=== PATIENT | female | born 1955 | race Caucasian/White ===

== ENCOUNTER 2016-09-29 10:29 | Outpatient (CLI) | payer MEDICAID | END 2016-09-29 10:30 | disposition home or self-care (01) | DX: E03.9 Hypothyroidism, unspecified (principal) ==

== ENCOUNTER 2016-12-04 07:00 | Outpatient (CLI) | payer MEDICAID | END 2016-12-04 07:01 | LOC: LAB.N 07:00 | PROVIDERS: ATTEND Nurse Practitioner Family | DX: H26.9 Unspecified cataract (principal) | CPT/HCPCS: 36415; 84443 ==

== ENCOUNTER 2016-12-11 09:08 | Outpatient (CLI) | payer MEDICAID ==
--- NOTE | 2016-12-12 09:53 | Mammography Report ---
DIGITAL BILATERAL SCREENING MAMMOGRAM: 12/11/2016 CLINICAL HISTORY: A 61-year-old female in for routine screening mammogram. Patient does have a fami ly history of breast cancer. Her great aunt had breast cancer in her 60s. Patient has had no prior breast surgeries. COMPARISON: 02/27/2007, 03/02/2008, 03/19/2009, 05/10/2011 TECHNIQUE: Craniocaudad and oblique lateral views of each breast were obtained with [facility] digital mammography. Axillary exaggerated craniocaudad views of both breasts were obtained to com pliment the examination. FINDINGS: Heterogeneously dense breasts are noted bilaterally. No significant clusters of calcifica tion are seen. No masses are noted. No change is seen. IMPRESSION: BREASTS APPEAR RADIOGRAPHICALLY BENIGN. BIRADS CATEGORY 1 - NEGATIVE. RECOMMENDATIONS: Annual bilateral screening mammography. STANDARD QUALIFYING STATEMENTS 1. This examination was reviewed with the aid of Computer-Aided Detection (CAD). 2. A negative or benign imaging report should not delay biopsy if clinically suspicious findings are present. Consider surgical consultation if warranted. More than 5% of cancers are not identified by i maging. 3. Dense breasts may obscure an underlying neoplasm. JOB #: [id number] EXT JOB #:[id number]
== END 2016-12-11 09:09 | disposition home or self-care (01) ==
LOC: DI 09:08
PROVIDERS: ATTEND Nurse Practitioner Family
DX: Z12.31 Encounter for screening mammogram for malignant neoplasm of breast (principal)
CPT/HCPCS: 77067

== ENCOUNTER 2017-02-01 11:46 | Emergency (ER) | payer MEDICAID ==
[2017-02-01 11:52] VITALS: BP 141/90
--- NOTE | 2017-02-01 14:33 | ED Physician Documentation ---
PD HPI UPPER EXT INJURY - Stated complaint Stated Complaint: FINGER LAC - Chief complaint Chief Complaint: Laceration - History obtained from History obtained from: Patient - History of Present Illness Location: Left, Finger Type of injury: Laceration (broken pyrex dish in sink.) Where injury occurred: Home Timing - onset: Today Worsened by: Moving, Palpating Associated symptoms: No: Weakness, Numbness, Tingling Recently seen: Not recently seen Review of Systems Neurologic: denies: Focal weakness, Numbness PD PAST MEDICAL HISTORY - Past Medical History Past Medical History: Yes Cardiovascular: None Respiratory: None Neuro: None Endocrine/Autoimmune: HyPOthyroidism Psych: Depression - Past Surgical History Past Surgical History: Yes 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, 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 HEENT: Tonsil/Adenoidectomy - Present Medications Home Medications: Ambulatory Orders Medication Instructions Recorded Confirmed Levothyroxine [Synthroid] 1 tab PO DAILY 10/19/15 02/01/17 Latanoprost 2.5 ml OP DAILY 02/01/17 02/01/17 - Allergies Allergies/Adverse Reactions: Allergies Allergy/AdvReac Type Severity Reaction Status Date / Time adhesive Allergy Rash Verified 10/19/15 20:12 atropine sulfate * Allergy Unknown Verified 02/01/17 11:53 [From ] ciprofloxacin Allergy Anxiety Verified 10/19/15 20:12 ciprofloxacin HCl * Allergy Anxiety Verified 10/19/15 20:12 [From Cipro] hydromorphone HCl * Allergy Hallucinati Verified 02/01/17 11:53 [From Dilaudid] ons hyoscyamine sulfate * Allergy Unknown Verified 02/01/17 11:53 [From ] phenobarbital [From ] Allergy Unknown Verified 02/01/17 11:53 propoxyphene HCl * Allergy Nausea Verified 10/19/15 20:12 [From Darvon] scopolamine hydrobromide * Allergy Unknown Verified 02/01/17 11:53 [From ] - Social History Does the pt smoke?: No Smoking Status: Never smoker Does the pt drink ETOH?: No Does the pt have substance abuse?: No - Immunizations Immunizations are current?: Yes PD ED PE NORMAL - Vitals Vital signs reviewed: Yes - General General: Alert and oriented X 3, No acute distress, Well developed/nourished - Derm Derm: Normal color, Warm and dry Results - Vitals Vitals: Oxygen O2 Source Room air Procedures - Laceration (location) left index finger Length in cm: 1.5 Wound type: Curved Neurovascular status: Sensory intact, Motor intact, Vascular intact Tendon involvement: No: Tendon Injury Anesthesia: Lidocaine 1% Wound Preparation: Irrigated copiously NS, Wound explored, To the base. No: FB identified Skin layer closure: Nylon, Interrupted, Size #-0 - enter number (4), Sutures - enter # (7) Other: Patient tolerated well, No complications, Neurovascular intact, Dressing applied, Tetanus UTD Complexity: Simple PD MEDICAL DECISION MAKING - ED course Complexity details: considered differential, d/w patient Departure - Departure Disposition: 01 Home, Self Care Clinical Impression: Finger laceration Qualifiers: Encounter type: initial encounter Finger: index finger Damage to nail status: without damage Foreign body presence: without foreign body Laterality: left Qualified Code(s): S61.211A - Laceration without foreign body of left index finger without damage to nail, initial encounter Condition: Stable Record reviewed to determine appropriate education?: Yes Instructions: ED Laceration Hand Follow-Up: Izabella Wharton ARNP [Primary Care Provider] - Comments: It is okay to wash and shower. Clean off the wound twice a day with soap and water, or peroxide and water. Apply some antibiotic ointment to it to keep it moist. Also to watch for signs of infection such as purulence, redness or increasing pain. Return to your primary care or the ER at the specified time for suture removal. Suture removal 9-10 days. Tylenol or ibuprofen if needed for pain. Discharge Date/Time: 02/01/17 15:08
[2017-02-01] MEDS ORDERED: LIDOCAINE 1% 50 ML MDV SUBQ STA (14:40)
[2017-02-01] MEDS ORDERED: LIDOCAINE 1% 2 ML VIAL ONE (14:44)
== END 2017-02-01 15:08 | disposition home or self-care (01) ==
LOC: ED 11:46
DX: S61.211A Laceration without foreign body of left index finger without damage to nail, initial encounter (principal); W45.8XXA Other foreign body or object entering through skin, initial encounter; Y93.G1 Activity, food preparation and clean up; Y92.009 Unspecified place in unspecified non-institutional (private) residence as the place of occurrence of the external cause
CPT/HCPCS: 12001; 99282; 99283

== ENCOUNTER 2017-02-06 13:46 | Outpatient (CLI) | payer MEDICAID ==
[2017-02-06 18:00] LABS: ALBUMIN/GLOBULIN RATIO 1.4 (1.0-2.2); BILIRUBIN,TOTAL 0.4 mg/dL (0.2-1.0); CALCIUM 8.9 mg/dL (8.5-10.3); CREATININE 0.9 mg/dL (0.4-1.0); POTASSIUM 3.8 mmol/L (3.5-5.0); TOTAL PROTEIN 6.9 g/dL (6.7-8.2)
[2017-02-06 18:02] LABS: HEMOGLOBIN A1C 0.53 g/dL
== END 2017-02-06 13:47 | disposition home or self-care (01) ==
LOC: LAB.F 13:46
PROVIDERS: ATTEND Nurse Practitioner Family
DX: R73.01 Impaired fasting glucose (principal)
CPT/HCPCS: 36415; 80053; 83036

== ENCOUNTER 2017-02-11 20:41 | Outpatient (CLI) | payer MEDICAID | END 2017-02-11 20:42 | disposition EMS.NT | LOC: EMS 20:41 | PROVIDERS: ATTEND Surgery | DX: R53.1 Weakness (principal); R68.89 Other general symptoms and signs ==

== ENCOUNTER 2017-10-19 03:25 | Outpatient (CLI) | payer MEDICAID | END 2017-10-19 03:26 | disposition home or self-care (01) | LOC: RT.S 03:25 | PROVIDERS: ATTEND Nurse Practitioner Family | DX: R55 Syncope and collapse (principal) | CPT/HCPCS: 93005 ==

== ENCOUNTER 2017-10-23 08:00 | Outpatient (CLI) | payer MEDICAID ==
[2017-10-23 18:18] LABS: HB2 TOTAL 15.2 g/dL; HEMOGLOBIN A1C 0.54 g/dL; HEMOGLOBIN A1C % 5.4 % (4.6-6.2)
[2017-10-23 18:30] LABS: % IRON SATURATION 27 % (20-50); IRON 83 ug/dL (28-170); TOTAL IRON BINDING CAPACITY 312 ug/dL (250-450); TRANSFERRIN 223 mg/dL (192-382)
[2017-10-23 18:33] LABS: FOLATE 21.55 ng/mL (5.90 - >24.8)
== END 2017-10-23 08:01 | disposition home or self-care (01) ==
LOC: LAB.F 08:00
PROVIDERS: ATTEND Nurse Practitioner Family
DX: R55 Syncope and collapse (principal)
CPT/HCPCS: 36415; 82607; 82746; 83036; 83540; 84466

== ENCOUNTER 2018-01-01 10:37 | Outpatient (CLI) | payer MEDICAID ==
[2018-01-01 18:22] LABS: THYROID STIMULATING HORMONE 0.88 uIU/mL (0.34-5.60)
[2018-01-01 18:24] LABS: FREE T4 (FREE THYROXINE) 1.25 ng/dL (0.58-1.64)
== END 2018-01-01 10:38 | disposition home or self-care (01) ==
LOC: LAB.F 10:37
PROVIDERS: ATTEND Nurse Practitioner Family
DX: E06.3 Autoimmune thyroiditis (principal)
CPT/HCPCS: 36415; 84439; 84443; 84481

== ENCOUNTER 2018-01-30 10:30 | Outpatient (CLI) | payer MEDICAID ==
[2018-01-30 18:22] LABS: ALBUMIN/GLOBULIN RATIO 1.5 (1.0-2.2); ALKALINE PHOSPHATASE 64 IU/L (42-121); ALT ALANINE AMINOTRANSFERASE 16 IU/L (10-60); AST ASPARTATE AMINOTRANSFERASE 21 IU/L (10-42); BILIRUBIN,TOTAL 0.5 mg/dL (0.2-1.0); BUN - BLOOD UREA NITROGEN 17 mg/dL (6-20); CALCIUM 9.1 mg/dL (8.5-10.3); CARBON DIOXIDE - CO2 26 mmol/L (21-32); CHLORIDE 106 mmol/L (101-111); CHOL/HDL RATIO 3.9 (<4.4); CHOLESTEROL 258 mg/dL; CREATININE 0.9 mg/dL (0.4-1.0); GFR - MDRD 63 (>89); GLUCOSE 102 mg/dL (70-100); HDL CHOLESTEROL 67 mg/dL; LDL CHOLESTEROL,CALCULATED 173 mg/dL; LDL/HDL RATIO 2.6 (<4.4); SODIUM 139 mmol/L (135-145); TOTAL PROTEIN 6.6 g/dL (6.7-8.2); VLDL CHOLESTEROL 18 mg/dL
[2018-01-30 18:29] LABS: THYROID STIMULATING HORMONE 0.39 uIU/mL (0.34-5.60)
[2018-01-30 18:32] LABS: FREE T4 (FREE THYROXINE) 1.07 ng/dL (0.58-1.64)
[2018-01-30 18:36] LABS: TOTAL T3 0.73 ng/mL (0.87-1.78)
== END 2018-01-30 10:31 | disposition home or self-care (01) ==
LOC: LAB.F 10:30
PROVIDERS: ATTEND Physician Assistant
DX: E78.5 Hyperlipidemia, unspecified (principal); E03.9 Hypothyroidism, unspecified
CPT/HCPCS: 36415; 80053; 80061; 83721; 84439; 84443; 84480

== ENCOUNTER 2018-04-10 19:09 | Emergency (ER) | payer MEDICAID ==
[2018-04-10 21:53] LABS: BASOPHILS # (AUTO) 0.1 10^3/uL (0.0-0.1); BASOPHILS % (AUTO) 1.3 %; EOSINOPHILS # (AUTO) 0.1 10^3/uL (0.0-0.7); EOSINOPHILS % (AUTO) 0.9 %; HGB - HEMOGLOBIN 12.6 g/dL (12.0-16.0); LYMPHOCYTES # (AUTO) 1.3 10^3/uL (1.5-3.5); LYMPHOCYTES % (AUTO) 11.2 %; MEAN CORPUSCULAR HEMOGLOBIN 32.5 pg (27.0-31.0); MEAN CORPUSCULAR HGB CONC 34.7 g/dL (32.0-36.0); MEAN CORPUSCULAR VOLUME 93.8 fL (81.0-99.0); MEAN PLATELET VOLUME 7.7 fL (7.9-10.8); MONOCYTES % (AUTO) 9.3 %; NEUTROPHILS # (AUTO) 8.7 10^3/uL (1.5-6.6); NEUTROPHILS % (AUTO) 77.3 %; PLT - PLATELET COUNT 257 10^3/uL (130-450); RED BLOOD COUNT 3.88 10^6/uL (4.20-5.40); RED CELL DISTRIBUTION WIDTH 13.6 % (12.0-15.0); WHITE BLOOD COUNT 11.2 x10^3/uL (4.8-10.8)
[2018-04-10 22:02] LABS: ALBUMIN 3.9 g/dL (3.2-5.5); ALBUMIN/GLOBULIN RATIO 1.3 (1.0-2.2); BILIRUBIN,TOTAL 0.6 mg/dL (0.2-1.0); CALCIUM 8.5 mg/dL (8.5-10.3); CREATININE 1.1 mg/dL (0.4-1.0); TOTAL PROTEIN 6.9 g/dL (6.7-8.2)
--- NOTE | 2018-04-10 22:13 | ED Physician Documentation ---
PD HPI URI - Stated complaint Stated Complaint: FEVER/ACHES/SOA - Chief complaint Chief Complaint: General - History obtained from History obtained from: Patient - History of Present Illness Timing - onset: Today Timing duration: Days Timing details: Abrupt onset, Still present Associated symptoms: Chills, Nasal congestion. No: Hemoptysis, Chest pain, Dyspnea, NVD Contributing factors: Other (she is concerned that she has been in crawlspace under house to clean it out, prepping for sale, and there were rats, and other debris, spider webs. No molds seen.). No: Sick contact, Travel, COPD / asthma Similar symptoms before: Has not had sx before Recently seen: Not recently seen Review of Systems Ten Systems: 10 systems reviewed and negative Constitutional: reports: Fever, Chills, Myalgias, Fatigue Nose: denies: Rhinorrhea / runny nose, Congestion Throat: denies: Sore throat Cardiac: denies: Chest pain / pressure, Palpitations Respiratory: reports: Cough. denies: Dyspnea GI: denies: Nausea, Vomiting, Diarrhea Skin: denies: Rash Neurologic: reports: Generalized weakness. 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 HEENT: Cataracts, Tonsil/Adenoidectomy - Present Medications Home Medications: Ambulatory Orders Medication Instructions Recorded Confirmed Levothyroxine [Synthroid] 1 tab PO DAILY 10/19/15 02/01/17 Latanoprost 2.5 ml OP DAILY 02/01/17 02/01/17 - Allergies Allergies/Adverse Reactions: Allergies Allergy/AdvReac Type Severity Reaction Status Date / Time adhesive Allergy Rash Verified 04/10/18 19:33 atropine sulfate * Allergy Unknown Verified 04/10/18 19:33 [From ] ciprofloxacin Allergy Anxiety Verified 04/10/18 19:33 ciprofloxacin HCl * Allergy Anxiety Verified 04/10/18 19:33 [From Cipro] hydromorphone HCl * Allergy Hallucinati Verified 04/10/18 19:33 [From Dilaudid] ons hyoscyamine sulfate * Allergy Unknown Verified 04/10/18 19:33 [From ] phenobarbital [From ] Allergy Unknown Verified 04/10/18 19:33 propoxyphene HCl * Allergy Nausea Verified 04/10/18 19:33 [From Darvon] scopolamine hydrobromide * Allergy Unknown Verified 04/10/18 19:33 [From ] - Social History Does the pt smoke?: No Smoking Status: Never smoker Does the pt drink ETOH?: No Does the pt have substance abuse?: No - Immunizations Immunizations are current?: Yes - POLST Patient has POLST: No PD ED PE NORMAL - Vitals Vital signs reviewed: Yes - General General: Alert and oriented X 3, No acute distress, Well developed/nourished - HEENT HEENT: Ears normal, Moist mucous membranes, Pharynx benign - Neck Neck: Supple, no meningeal sign, Thyroid normal Results - Vitals Vitals: Oxygen O2 Source Room air - Labs Labs: Laboratory Tests 04/10/18 04/10/18 04/10/18 21:36 21:45 21:45 WBC 11.2 H RBC 3.88 L Hgb 12.6 Hct 36.4 L MCV 93.8 MCH 32.5 H MCHC 34.7 RDW 13.6 Plt Count 257 MPV 7.7 L Neut # (Auto) 8.7 H Lymph # (Auto) 1.3 L [place] # (Auto) 1.0 Eos # (Auto) 0.1 Baso # (Auto) 0.1 Absolute Nucleated RBC 0.00 Nucleated RBC % 0.0 Sodium 136 Potassium 3.8 Chloride 105 Carbon Dioxide 23 Anion Gap 8.0 BUN 17 Creatinine 1.1 H Estimated GFR (MDRD) 50 L Glucose 110 H Calcium 8.5 Total Bilirubin 0.6 AST 21 ALT 15 Alkaline Phosphatase 68 Total Protein 6.9 Albumin 3.9 Globulin 3.0 Albumin/Globulin Ratio 1.3 Lipase 37 Influenza A (Rapid) Negative Influenza B (Rapid) Negative - Rads (name of study) chest xray Radiology: Prelim report reviewed (see dictated report: no acute process seen on film. ) PD MEDICAL DECISION MAKING - ED course Complexity details: considered differential, d/w patient Departure - Departure Disposition: 01 Home, Self Care Clinical Impression: Flu-like symptoms Condition: Stable Record reviewed to determine appropriate education?: Yes Instructions: ED Viral Syndrome Follow-Up: Izabella Wharton ARNP [Primary Care Provider] - Comments: Your flu test is negative though it is not completely accurate. There is still some possibility that may be the flu or may be just a viral illness with flulike symptoms. Your chest x-ray and blood tests are normal so no signs of pneumonia and no indication for antivirus illness. Drink lots of fluids. Tylenol ibuprofen if needed for fevers and pains. Recheck if worsening symptoms that are concerning for you over the next several days. Otherwise expect some fevers aches and upper respiratory type symptoms. Discharge Date/Time: 04/10/18 22:22
--- NOTE | 2018-04-10 22:14 | XRAY Report ---
Reason: fever, dyspnea, fatigue Procedure Date: 04/10/2018 Accession Number: [id number] / [id number] Procedure: XR - Chest 2 View X-Ray CPT Code: 17975 FULL RESULT: EXAM: CHEST RADIOGRAPHY. EXAM DATE: 04/10/2018 09:59 PM. CLINICAL HISTORY: Fever, dyspnea, fatigue. Symptoms for 12 hours. COMPARISON: None. TECHNIQUE: 2 views. FINDINGS: Lungs/Pleura: Subtle rounded opacity projects over the medial portion of the right apex, probably artifact from an overlying osseous shadow. However, underlying airspace disease difficult to exclude with certainty. Mediastinum: Heart and mediastinal contours are unremarkable. Other: None. IMPRESSION: Rounded right medial apical opacity artifact versus true airspace disease. This could be further assessed with a chest CT, if clinically necessary. [facility]
[2018-04-10 22:21] VITALS: BP 132/75
== END 2018-04-10 22:22 | disposition home or self-care (01) ==
LOC: ED 19:09
DX: J11.1 Influenza due to unidentified influenza virus with other respiratory manifestations (principal); C73 Malignant neoplasm of thyroid gland; E03.9 Hypothyroidism, unspecified
CPT/HCPCS: 36415; 71046; 80053; 83690; 85025; 87275; 87276; 99282; 99283